=== PATIENT | female | born 1950 | race Caucasian/White ===

== ENCOUNTER → 2017-07-09 13:20 | Outpatient (CLI) | payer MEDICARE, BC ==
[2011-09-06 08:54] VITALS: BMI 28.1
== END | disposition home or self-care (01) ==
LOC: D.MAMMO 09:30
DX: Z12.31 Encounter for screening mammogram for malignant neoplasm of breast (principal)

== ENCOUNTER 2019-01-01 08:00 | Outpatient (CLI) | payer MEDICARE, BC ==
[2011-09-06 08:54] VITALS: BMI 28.1
== END 2019-01-01 11:00 | disposition home or self-care (01) ==
LOC: D.MAMMO 08:00
PROVIDERS: ATTEND Family Medicine
DX: Z12.31 Encounter for screening mammogram for malignant neoplasm of breast (principal)

== ENCOUNTER → 2019-07-02 13:24 | Outpatient (CLI) | payer MEDICARE ==
[2011-09-06 08:54] VITALS: BMI 28.1
== END | disposition home or self-care (01) ==
LOC: D.MRI 13:24
PROVIDERS: ATTEND Orthopaedic Surgery
DX: S83.232A Complex tear of medial meniscus, current injury, left knee, initial encounter (principal)

== ENCOUNTER 2020-03-17 13:30 | Outpatient (CLI) | payer MEDICARE ==
[2011-09-06 08:54] VITALS: BMI 28.1
== END 2020-03-17 15:00 | disposition home or self-care (01) ==
LOC: D.MAMMO 13:30
PROVIDERS: ATTEND Family Medicine
DX: Z12.31 Encounter for screening mammogram for malignant neoplasm of breast (principal)